=== PATIENT | male | born 1945 | race Asian ===

== ENCOUNTER 2025-04-21 11:49 | Outpatient (RCR) | payer MEDICARE, MEDICAID, SELFPAY ==
--- NOTE | 2025-04-21 12:30 | XR_ITS ---
Examination: Nuclear medicine hepatobiliary scan, static HIDA scan Date of exam: April 21, 2025 1220 hours INDICATIONS: Sharp right upper abdominal pain one year Technique And Findings: 5.9 mCi 99m Hepatolite administered intravenously. Serial imaging obtained immediately through 60 minutes. Homogenous uptake in the liver. Common bile duct small bowel activity noted 1.6 Impression: Gallbladder activity Normal gallbladder ejection fraction, 82%
== END 2025-04-26 23:59 | disposition home or self-care (01) ==
LOC: SNUC 11:49
PROVIDERS: PCP Physician Assistant; Referring Provider Physician Assistant; Visit Provider Physician Assistant
DX: R93.2 Abnormal findings on diagnostic imaging of liver and biliary tract (principal)
CPT/HCPCS: 78226; A9537; J2805